=== PATIENT | female | born 1975 | race Caucasian/White ===

== ENCOUNTER 2018-07-10 18:06 | Observation (INO) ==
--- NOTE | 2018-07-10 18:14 | Emergency Department Note ---
Disposition Clinical Impression: Deliberate self-cutting UTI (urinary tract infection) Qualifiers: Urinary tract infection type: acute cystitis Hematuria presence: without hematuria Qualified Code(s): N30.00 - Acute cystitis without hematuria Disposition: Still a Patient Condition: Good Instructions: Suicide Prevention for Adults (ED), Urinary Tract Infection in Women (ED) Reasons to Return/Additional Instructions: Please take your medication as prescribed. If he feel the need to hurt yourself please call 911 and come to the emergency department. You have a urinary tract infection please be sure to take your antibiotics do not stop taking them even if he feel better. Please be sure to drink plenty of clear fluids. 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 Please be sure to take your medications as prescribed. You tested positive for several different drugs. Please stop using drugs. Drugs are bad for you. Drugs could possibly kill you. If you insist on using drugs please use them around someone else that is not using and that is responsible enough that can administer Narcan and call 911. Please keep your sutures clean and dry. Clean them daily with warm soapy water. And then recover with antibiotic ointment and a loose dressing. Please do not soak your hands. You are sutures will fall out by themself. Please do not attempt to remove them. If you notice any signs that your sutures site is turning red, or has a discharge, or foul odor or any other signs or symptoms are concerning to you please return to the emergency department immediately. You can use [id number] Tylenol or Motrin at the dose prescribed on the bottle to help with pain relief. Prescriptions: Cephalexin [Keflex] 500 mg PO BID 7 Days capsule predniSONE [PredniSONE] 20 mg PO DAILY #20 tablet Referrals: NONE,PCP [Primary Care Provider] - Forms: ED Satisfaction Letter Time of Disposition: 22:39 General Adult HPI - General Stated complaint: 1a eval Time Seen by Provider: 07/10/18 18:09 Source: EMS Mode of arrival: ambulatory Limitations: no limitations Nursing Notes Reviewed: Yes Vital Signs Reviewed: Yes - History of Present Illness HPI Narrative: Female patient presenting to [facility] room complaining of attempting to harm herself. She got into a fight with her boyfriend because she wanted to go back to [place] to get treatment for her Hallie's. She believes she is in an Hallie's crisis. She states that she needs a dose of steroids. After being his argument she picked up a knife and cut her left wrist twice. She does have a history of this. She states last time she cut herself was when she was 13. She currently is not endorsing suicidal ideation or homicidal ideation. She does report that with her crisis she does not want to eat and she has some abdominal pain she denies any abdominal pain at this time. We will give dose of prednisone while here and get a basic lab workup. She is agreeable for a Ia evaluation. The laceration on her arm will also have to be sutured. She states that her last tetanus shot was approximately 3 years ago. - Related Data Previous Rx's Medication Instructions Recorded Cephalexin [Keflex] 500 mg PO BID 7 Days capsule 07/10/18 NALOXONE 4 MG Nasal [place] [Narcan] 4 mg NS AD #2 sprays 07/10/18 predniSONE [PredniSONE] 20 mg PO DAILY #20 tablet 07/10/18 Allergies Allergy/AdvReac Type Severity Reaction Status Date / Time ciprofloxacin Allergy Rash Verified 07/10/18 18:49 All systems ED: reviewed and negative except as stated. Review of Systems: As Per HPI Constitutional: Denies: fever Cardiovascular: Denies: chest pain, syncope Respiratory: Denies: cough, dyspnea Gastrointestinal: Reports: abdominal pain (Occasional. Not at this time.). Denies: nausea, vomiting, diarrhea, hematemesis, melena, hematochezia Genitourinary: Denies: urgency, dysuria, frequency, hematuria Musculoskeletal: Denies: back pain Integumentary: Reports: other (Laceration and abrasion to left wrist. Self- induced.) Psychiatric: Reports: anxiety, other (She reports self-harm thoughts still. She states she does not want to kill herself but she does still want to harm herself.). Denies: homicidal thoughts, auditory hallucinations, visual hallucinations Past Medical History - Past Medical History Attestation: Yes The following information was validated with the patient. 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 Absent: scleral icterus - ENT ENT exam: normal exam, normal oropharynx, mucous membranes moist - Neck Neck exam: Present: normal inspection, full ROM, trachea midline - Chest Chest inspection: Present: normal inspection, symmetric chest wall rise - Respiratory Respiratory exam: Present: normal lung sounds bilaterally. Absent: respiratory distress, accessory muscle use - Cardiovascular Cardiovascular exam: Present: regular rate, normal rhythm, normal heart sounds - Abdominal Exam Abdominal exam: Present: soft, Non-Tender. Absent: tenderness, distention, guarding, rebound, rigidity, organomegaly - Extremities Exam Extremities exam: Present: full ROM. Absent: tenderness, pedal edema - Expanded Upper Extremity Exam Shoulder exam: Present: normal inspection, full ROM Arm exam: Present: normal inspection, full ROM Elbow exam: Present: normal inspection, full ROM Forearm/Wrist exam: Present: full ROM, abrasion (Approximately 3 cm to left wrist.), laceration (Approximately 1/2 cm to left wrist.). Absent: tenderness, swelling Hand exam: Present: normal inspection, full ROM. Absent: tenderness, swelling, abrasion - Expanded Lower Extremity Exam Hip/Pelvis exam: Present: normal inspection, full ROM Upper leg exam: Present: normal inspection, full ROM Knee exam: Present: normal inspection, full ROM Lower leg exam: Present: normal inspection, full ROM Ankle exam: Present: normal inspection, full ROM Foot/toe exam: Present: normal inspection, full ROM Neurovascular/Tendon exam: Absent: motor deficit, sensory deficit, tendon deficit - Neurological Exam Neurological exam: Present: alert, oriented X3 - Psychiatric Psychiatric exam: Present: normal affect, normal mood - Skin Skin exam: Present: warm, dry, normal color - Expanded Skin Exam 1 - Laceration 2 - Abrasion Course Course Narrative: [place] Ia workup on the patient we will provide her with prednisone while here. We also suture patient's left forearm. She is up-to-date on her tetanus we will not be providing this. Patient is agreeable with this plan. Vital Signs Temperature 98.0 F 07/10/18 18:14 Pulse Rate 89 07/10/18 18:14 Respiratory Rate 20 07/10/18 18:14 Blood Pressure 129/103 07/10/18 18:14 O2 Sat by Pulse Oximetry 100 07/10/18 18:14 Temperature 98.0 F 07/10/18 18:14 Pulse Rate 89 07/10/18 18:14 Respiratory Rate 20 07/10/18 18:14 Blood Pressure 129/103 07/10/18 18:14 O2 Sat by Pulse Oximetry 100 07/10/18 18:14 Oxygen Delivery Oxygen Delivery Room Air Procedures - Laceration Laceration 1 Site: upper extremity Side (If applicable): left Size (cm): 1.5 Description: linear Depth: simple, single layer Local Anesthetic: lidocaine 1%, with epi Amount of Anesthesia Used (mL): 2 Pre-repair: wound explored, irrigated extensively, deep structures intact Skin layer closed with: other (gut) Size: 6-0 Technique: simple, interrupted Medical Decision Making - Medical Records Medical records reviewed: Yes I reviewed the patient's medical records. - Lab Data Lab results reviewed: Yes I reviewed the patient's lab results. Result diagrams: 07/10/18 19:17 07/10/18 19:17 Lab Results 07/10/18 07/10/18 07/10/18 Range/Units 18:36 18:36 19:17 WBC 12.8 H (4.3-11.1) K/mcL RBC 4.79 (3.82-4.97) M/mcL Hgb 14.8 (11.5-15.4) g/dL Hct 46.0 H (35.3-44.9) % MCV 96.0 (83.0-100.0) fL MCH 30.9 (28.0-33.3) pg MCHC 32.2 (31.6-35.5) g/dL RDW 12.9 (11.5-14.5) % Plt Count 468 H (140-400) K/mcL MPV 9.8 (9.4-12.4) fL Immature Gran % 0.2 (0-4) % Seg Neutrophils % 56.6 % Lymphocytes % 35.4 % Monocytes % 6.9 % Eosinophils % 0.7 % Basophils % 0.2 % Neutrophils # 7.2 (1.6-8.9) K/mcL Lymphocytes # 4.5 (0.6-4.6) K/mcL Monocytes # 0.9 (0.0-1.3) K/mcL Eosinophils # 0.1 (0.0-0.6) K/mcL Basophils # 0.0 (0.0-0.2) K/mcL Sodium (136-145) mEq/L Potassium (3.5-5.1) mEq/L Chloride (98-107) mEq/L Carbon Dioxide (23-29) mEq/L BUN (6-20) mg/dL Creatinine (0.60-1.20) mg/dL Est GFR ( Amer) (> 60) Est GFR (Non-Af Amer) (> 60) BUN/Creatinine Ratio (6-26) Glucose (70-105) mg/dL Calculated Osmolality (280-300) Calcium (8.6-10.3) mg/dL Urine Color Dark Yellow (Yellow) Urine Clarity Cloudy A (Clear) Urine pH 5.5 (5.0-8.0) pH Units Ur Specific [place] > 1.030 H (1.010-1.025) Urine Protein Trace (Neg-Trace) mg/dL Urine Glucose (UA) Normal (Normal) mg/dL Urine Ketones Trace H (Negative) mg/dL Urine Blood Negative (Negative) Urine Nitrite Positive A (Negative) Urine Bilirubin Small H (Negative) Urine Urobilinogen Normal (Normal) mg/dL Ur Leukocyte Esterase Small H (Negative) Urine Microscopic RBC 5-15 H (0-3) per hpf Urine Microscopic WBC 30-50 H (0-3) per hpf Ur Squamous Epith Cells Many H (None-Few) per lpf Urine Bacteria Many H (None-Few) per hpf Hyaline Casts Few (None-Few) per lpf Salicylates (15.0-30.0) mg/dL Urine Opiates Screen Positive H (Yuexbl=137) ng/mL Acetaminophen (10-20) mcg/mL Ur Barbiturates Screen Negative (Efzizf=947) ng/mL Ur Phencyclidine Scrn Negative (Cutoff=25) ng/mL Ur Amphetamines Screen Positive H (Syndcm=5422) ng/mL U Benzodiazepines Scrn Positive H (Rkjpln=028) ng/mL Urine Cocaine Screen Positive H (Cutoff= 300) ng/mL U Marijuana (THC) Screen Positive H (Cutoff = 50) ng/mL Ur Drug Screen Interp See Below Ethyl Alcohol (Less than 10) mg/dL 07/10/18 Range/Units 19:17 WBC (4.3-11.1) K/mcL RBC (3.82-4.97) M/mcL Hgb (11.5-15.4) g/dL Hct (35.3-44.9) % MCV (83.0-100.0) fL MCH (28.0-33.3) pg MCHC (31.6-35.5) g/dL RDW (11.5-14.5) % Plt Count (140-400) K/mcL MPV (9.4-12.4) fL Immature Gran % (0-4) % Seg Neutrophils % % Lymphocytes % % Monocytes % % Eosinophils % % Basophils % % Neutrophils # (1.6-8.9) K/mcL Lymphocytes # (0.6-4.6) K/mcL Monocytes # (0.0-1.3) K/mcL Eosinophils # (0.0-0.6) K/mcL Basophils # (0.0-0.2) K/mcL Sodium 140 (136-145) mEq/L Potassium 3.7 (3.5-5.1) mEq/L Chloride 105 (98-107) mEq/L Carbon Dioxide 26 (23-29) mEq/L BUN 16 (6-20) mg/dL Creatinine 1.07 (0.60-1.20) mg/dL Est GFR ( Amer) > 60 (> 60) Est GFR (Non-Af Amer) 56 L (> 60) BUN/Creatinine Ratio 15 (6-26) Glucose 100 (70-105) mg/dL Calculated Osmolality 291 (280-300) Calcium 9.9 (8.6-10.3) mg/dL Urine Color (Yellow) Urine Clarity (Clear) Urine pH (5.0-8.0) pH Units Ur Specific [place] (1.010-1.025) Urine Protein (Neg-Trace) mg/dL Urine Glucose (UA) (Normal) mg/dL Urine Ketones (Negative) mg/dL Urine Blood (Negative) Urine Nitrite (Negative) Urine Bilirubin (Negative) Urine Urobilinogen (Normal) mg/dL Ur Leukocyte Esterase (Negative) Urine Microscopic RBC (0-3) per hpf Urine Microscopic WBC (0-3) per hpf Ur Squamous Epith Cells (None-Few) per lpf Urine Bacteria (None-Few) per hpf Hyaline Casts (None-Few) per lpf Salicylates < 2.5 L (15.0-30.0) mg/dL Urine Opiates Screen (Dtjzox=890) ng/mL Acetaminophen < 10 L (10-20) mcg/mL Ur Barbiturates Screen (Mypxcs=445) ng/mL Ur Phencyclidine Scrn (Cutoff=25) ng/mL Ur Amphetamines Screen (Lcipsi=8319) ng/mL U Benzodiazepines Scrn (Zyoivf=974) ng/mL Urine Cocaine Screen (Cutoff= 300) ng/mL U Marijuana (THC) Screen (Cutoff = 50) ng/mL Ur Drug Screen Interp Ethyl Alcohol < 10 (Less than 10) mg/dL
[2018-07-10] MEDS ORDERED: Lidocaine/EPI 1:100k 1% 30 ML VIAL INFILT ONE (18:32)
[2018-07-10] MEDS ORDERED: predniSONE 20 MG TABLET PO ONE (18:34)
[2018-07-10 18:45] LABS: Bilirubin,Urine Small (Negative); Blood,Urine Negative (Negative); Clarity,Urine Cloudy (Clear); Color,Urine Dark Yellow (Yellow); Glucose,Urine (UA) Normal (Normal); Ketones,Urine Trace mg/dL (Negative); Leukocyte Esterase,Urine Small (Negative); Nitrite,Urine Positive (Negative); PH,Urine 5.5 pH Units (5.0-8.0); Protein,Urine Trace mg/dL (Neg-Trace); Specific Gravity,Urine > 1.030 (1.010-1.025); Urobilinogen,Urine Normal (Normal)
[2018-07-10 18:46] LABS: Bacteria,Urine Many per hpf (None-Few); Hyaline Casts,Urine Few per lpf (None-Few); Squamous Epithelial Cell,Urine Many per lpf (None-Few); WBC,Urine 30-50 per hpf (0-3)
[2018-07-10 18:57] LABS: Amphetamine Screen,Urine Positive ng/mL (Cutoff=1000); Barbiturate Screen,Urine Negative ng/mL (Cutoff=200); Benzodiazepines Screen,Urine Positive ng/mL (Cutoff=200); Cannabinoid Screen,Urine Positive ng/mL (Cutoff = 50); Cocaine Screen,Urine Positive ng/mL (Cutoff= 300); Opiate Screen,Urine Positive ng/mL (Cutoff=300); Phencyclidine Screen,Urine Negative ng/mL (Cutoff=25)
[2018-07-10 19:39] LABS: Basophils % 0.2 %; Eosinophils # 0.1 K/mcL (0.0-0.6); Eosinophils % 0.7 %; Hemoglobin 14.8 g/dL (11.5-15.4); Immature Granulocytes % 0.2 % (0-4); Lymphocytes # 4.5 K/mcL (0.6-4.6); Lymphocytes % 35.4 %; Mean Corpuscular HGB Conc 32.2 g/dL (31.6-35.5); Mean Corpuscular Hemoglobin 30.9 pg (28.0-33.3); Mean Platelet Volume 9.8 fL (9.4-12.4); Monocytes # 0.9 K/mcL (0.0-1.3); Monocytes % 6.9 %; Neutrophils # 7.2 K/mcL (1.6-8.9); Platelet Count 468 K/mcL (140-400); Red Blood Count 4.79 M/mcL (3.82-4.97); Red Cell Distribution Width 12.9 % (11.5-14.5); Segmented Neutrophils % 56.6 %
[2018-07-10] MEDS ORDERED: CefTRIAXone 1,000 MG VIAL IM ONE (19:43)
[2018-07-10] MEDS ORDERED: Bacitracin OINT PKT TP ONE (19:49)
[2018-07-10 20:13] LABS: Acetaminophen < 10 mcg/mL (10-20); BUN/Creatinine Ratio 15 (6-26); Blood Urea Nitrogen 16 mg/dL (6-20); Calcium 9.9 mg/dL (8.6-10.3); Carbon Dioxide 26 mEq/L (23-29); Chloride 105 mEq/L (98-107); Ethanol < 10 mg/dL (Less than 10); Glucose 100 mg/dL (70-105); Osmolality,Calculated 291 (280-300); Potassium 3.7 mEq/L (3.5-5.1); Salicylate < 2.5 mg/dL (15.0-30.0); Sodium 140 mEq/L (136-145); eGFR For Non-African Americans 56 (> 60)
--- NOTE | 2018-07-10 20:38 | Emergency Department Note ---
Disposition Clinical Impression: Deliberate self-cutting Disposition: Still a Patient Referrals: NONE,PCP [Primary Care Provider] - General Adult HPI - General Chief complaint: ED Psychiatric Symptoms Stated complaint: 1a eval Time Seen by Provider: 07/10/18 18:09 Source: EMS Mode of arrival: ambulatory Limitations: no limitations - History of Present Illness Pain Scale: 0 - Related Data Allergies Allergy/AdvReac Type Severity Reaction Status Date / Time ciprofloxacin Allergy Rash Verified 07/10/18 18:49 Constitutional: Denies: fever Cardiovascular: Denies: chest pain, syncope Respiratory: Denies: cough, dyspnea Gastrointestinal: Reports: abdominal pain (Occasional. Not at this time.). Denies: nausea, vomiting, diarrhea, hematemesis, melena, hematochezia Genitourinary: Denies: urgency, dysuria, frequency, hematuria Musculoskeletal: Denies: back pain Integumentary: Reports: other (Laceration and abrasion to left wrist. Self- induced.) Psychiatric: Reports: anxiety, other (She reports self-harm thoughts still. She states she does not want to kill herself but she does still want to harm herself.). Denies: homicidal thoughts, auditory hallucinations, visual hallucinations Past Medical History - Past Medical History Medical history: Reports: other ([place]'s disease.) Psychiatric history: Reports: anxiety, depression - Social History Smoking Status: Current every day smoker Alcohol use: Reports: none Drug use: Reports: marijuana Physical Exam - General Limitations: no limitations General appearance: alert, in no apparent distress Course Vital Signs Temperature 98.0 F 07/10/18 18:14 Pulse Rate 89 07/10/18 18:14 Respiratory Rate 20 07/10/18 18:14 Blood Pressure 129/103 07/10/18 18:14 O2 Sat by Pulse Oximetry 100 07/10/18 18:14 Temperature 98.0 F 07/10/18 18:14 Pulse Rate 89 07/10/18 18:14 Respiratory Rate 20 07/10/18 18:14 Blood Pressure 129/103 07/10/18 18:14 O2 Sat by Pulse Oximetry 100 07/10/18 18:14 Oxygen Delivery Oxygen Delivery Room Air Medical Decision Making - Lab Data Result diagrams: 07/10/18 19:17 07/10/18 19:17 Lab Results 07/10/18 07/10/18 07/10/18 Range/Units 18:36 18:36 19:17 WBC 12.8 H (4.3-11.1) K/mcL RBC 4.79 (3.82-4.97) M/mcL Hgb 14.8 (11.5-15.4) g/dL Hct 46.0 H (35.3-44.9) % MCV 96.0 (83.0-100.0) fL MCH 30.9 (28.0-33.3) pg MCHC 32.2 (31.6-35.5) g/dL RDW 12.9 (11.5-14.5) % Plt Count 468 H (140-400) K/mcL MPV 9.8 (9.4-12.4) fL Immature Gran % 0.2 (0-4) % Seg Neutrophils % 56.6 % Lymphocytes % 35.4 % Monocytes % 6.9 % Eosinophils % 0.7 % Basophils % 0.2 % Neutrophils # 7.2 (1.6-8.9) K/mcL Lymphocytes # 4.5 (0.6-4.6) K/mcL Monocytes # 0.9 (0.0-1.3) K/mcL Eosinophils # 0.1 (0.0-0.6) K/mcL Basophils # 0.0 (0.0-0.2) K/mcL Sodium (136-145) mEq/L Potassium (3.5-5.1) mEq/L Chloride (98-107) mEq/L Carbon Dioxide (23-29) mEq/L BUN (6-20) mg/dL Creatinine (0.60-1.20) mg/dL Est GFR ( Amer) (> 60) Est GFR (Non-Af Amer) (> 60) BUN/Creatinine Ratio (6-26) Glucose (70-105) mg/dL Calculated Osmolality (280-300) Calcium (8.6-10.3) mg/dL Urine Color Dark Yellow (Yellow) Urine Clarity Cloudy A (Clear) Urine pH 5.5 (5.0-8.0) pH Units Ur Specific [place] > 1.030 H (1.010-1.025) Urine Protein Trace (Neg-Trace) mg/dL Urine Glucose (UA) Normal (Normal) mg/dL Urine Ketones Trace H (Negative) mg/dL Urine Blood Negative (Negative) Urine Nitrite Positive A (Negative) Urine Bilirubin Small H (Negative) Urine Urobilinogen Normal (Normal) mg/dL Ur Leukocyte Esterase Small H (Negative) Urine Microscopic RBC 5-15 H (0-3) per hpf Urine Microscopic WBC 30-50 H (0-3) per hpf Ur Squamous Epith Cells Many H (None-Few) per lpf Urine Bacteria Many H (None-Few) per hpf Hyaline Casts Few (None-Few) per lpf Salicylates (15.0-30.0) mg/dL Urine Opiates Screen Positive H (Yjimvq=218) ng/mL Acetaminophen (10-20) mcg/mL Ur Barbiturates Screen Negative (Nmnypr=951) ng/mL Ur Phencyclidine Scrn Negative (Cutoff=25) ng/mL Ur Amphetamines Screen Positive H (Pxtgvz=5919) ng/mL U Benzodiazepines Scrn Positive H (Zyuzzb=013) ng/mL Urine Cocaine Screen Positive H (Cutoff= 300) ng/mL U Marijuana (THC) Screen Positive H (Cutoff = 50) ng/mL Ur Drug Screen Interp See Below Ethyl Alcohol (Less than 10) mg/dL 07/10/18 Range/Units 19:17 WBC (4.3-11.1) K/mcL RBC (3.82-4.97) M/mcL Hgb (11.5-15.4) g/dL Hct (35.3-44.9) % MCV (83.0-100.0) fL MCH (28.0-33.3) pg MCHC (31.6-35.5) g/dL RDW (11.5-14.5) % Plt Count (140-400) K/mcL MPV (9.4-12.4) fL Immature Gran % (0-4) % Seg Neutrophils % % Lymphocytes % % Monocytes % % Eosinophils % % Basophils % % Neutrophils # (1.6-8.9) K/mcL Lymphocytes # (0.6-4.6) K/mcL Monocytes # (0.0-1.3) K/mcL Eosinophils # (0.0-0.6) K/mcL Basophils # (0.0-0.2) K/mcL Sodium 140 (136-145) mEq/L Potassium 3.7 (3.5-5.1) mEq/L Chloride 105 (98-107) mEq/L Carbon Dioxide 26 (23-29) mEq/L BUN 16 (6-20) mg/dL Creatinine 1.07 (0.60-1.20) mg/dL Est GFR ( Amer) > 60 (> 60) Est GFR (Non-Af Amer) 56 L (> 60) BUN/Creatinine Ratio 15 (6-26) Glucose 100 (70-105) mg/dL Calculated Osmolality 291 (280-300) Calcium 9.9 (8.6-10.3) mg/dL Urine Color (Yellow) Urine Clarity (Clear) Urine pH (5.0-8.0) pH Units Ur Specific [place] (1.010-1.025) Urine Protein (Neg-Trace) mg/dL Urine Glucose (UA) (Normal) mg/dL Urine Ketones (Negative) mg/dL Urine Blood (Negative) Urine Nitrite (Negative) Urine Bilirubin (Negative) Urine Urobilinogen (Normal) mg/dL Ur Leukocyte Esterase (Negative) Urine Microscopic RBC (0-3) per hpf Urine Microscopic WBC (0-3) per hpf Ur Squamous Epith Cells (None-Few) per lpf Urine Bacteria (None-Few) per hpf Hyaline Casts (None-Few) per lpf Salicylates < 2.5 L (15.0-30.0) mg/dL Urine Opiates Screen (Cccnkw=071) ng/mL Acetaminophen < 10 L (10-20) mcg/mL Ur Barbiturates Screen (Vjthes=241) ng/mL Ur Phencyclidine Scrn (Cutoff=25) ng/mL Ur Amphetamines Screen (Qpqtgi=8247) ng/mL U Benzodiazepines Scrn (Stjzvn=001) ng/mL Urine Cocaine Screen (Cutoff= 300) ng/mL U Marijuana (THC) Screen (Cutoff = 50) ng/mL Ur Drug Screen Interp Ethyl Alcohol < 10 (Less than 10) mg/dL Attestation Statement - Attestation Attestation: I examined this patient and my medical decision-making was reviewed with the Resident Physician. I agree with the documented findings, disposition and treatment plan as described except to the extent set forth below. 42 year old female presents to the ED with complaints of anxiety and depression and had an breakdown today and out of anger started cutting again, which wasnot in an attempt to kill herself but somethngshe has done in the past asan outlet. IT did require suture. She is now medicaly cleraed and we will consult 1A
[2018-07-10] MEDS ORDERED: *HR* LORazepam 1 MG TABLET PO PRN (23:32)
[2018-07-10] MEDS ORDERED: *HR* LORazepam 2 MG/ML VIAL IM PRN (23:32)
[2018-07-10] MEDS ORDERED: MOM Conc 10 ML UD.LIQ PO PRN (23:32)
[2018-07-10] MEDS ORDERED: hydrOXYzine pamoate 25 MG CAPSULE PO PRN (23:32)
[2018-07-10] MEDS ORDERED: traZODone 50 MG TABLET PO PRN (23:32)
[2018-07-10] MEDS ORDERED: Mag Hydrox/Al Hydrox/Simeth 30 ML UDC PO PRN (23:32)
[2018-07-10] MEDS ORDERED: Haloperidol Lactate 5 MG/ML VIAL IM PRN (23:32)
[2018-07-11] MEDS: Ibuprofen 400 MG TABLET PO PRN ×2 (00:43→15:51)
[2018-07-11] MEDS ORDERED: Nicotine 21 MG PATCH.TD24 TD SCH (09:00)
[2018-07-11 09:28] VITALS: BP 105/70
[2018-07-11] MEDS ORDERED: Furosemide 20 MG TABLET PO SCH (10:30)
[2018-07-11] MEDS ORDERED: cephALEXin 500 MG CAPSULE PO SCH (10:30)
[2018-07-11] MEDS ORDERED: predniSONE 20 MG TABLET PO SCH (10:30)
--- NOTE | 2018-07-11 10:56 | Discharge Summary ---
Date of Encounter: 07/11/18 Time of Encounter: 10:48 History of Present Illness Chief complaint: Suicidal ideation and polysubstance abuse Admitted From: Emergency Dept History of Present Illness: Ms. Brown is a 42 year old female admitted from the emergency department for suicidal ideation and attempt by cutting her wrists after an argument with her significant other. Patient is from [facility] and recently came to [place], she reports having relationship difficulties and she is going so divorce and was [place]. UDS was positive for multiple drugs including opiates and cocaine and amphetamine benzo and THC. Patient stated that she self medicates for [place] disease. She reports recently with loss and has not been able to see her doctor was [place]. For patient denies any psychiatric history she reports remote history of depression but no psychiatric treatment. Past Med Surg Social Fam HX - Past Medical History Medical history: other - Past Psychiatric History Psychiatric history: Reports: no psych history - Past Surgical History Surgical History: hysterectomy, other - Social History Smoking Status: Current every day smoker Smokeless Tobacco Status: No Alcohol use: none Drug use: cocaine, opiates, marijuana Medications - Discharge Medications Cephalexin [Keflex] 500 mg PO BID 7 Days capsule 07/10/18 [Rx] NALOXONE 4 MG Nasal [place] [Narcan] 4 mg NS AD #2 sprays 07/10/18 [Rx] predniSONE [PredniSONE] 20 mg PO DAILY #20 tablet 07/10/18 [Rx] Albuterol Sulfate [Ventolin Hfa] 2 puff IH Q4H PRN 07/11/18 [History] Fludrocortisone Acetate [Florinef] 0.1 mg PO DAILY 07/11/18 [History] Furosemide [Lasix] 20 mg PO DAILY 07/11/18 [History] Gabapentin [Neurontin] 600 mg PO TID 07/11/18 [History] Potassium Chloride [K-Tab ER] 10 meq PO DAILY 07/11/18 [History] Tamsulosin [Flomax] 0.4 mg PO DAILY 07/11/18 [History] Allergy/AdvReac Type Severity Reaction Status Date / Time ciprofloxacin Allergy Rash Verified 07/10/18 18:49 Review of Systems Psychiatric: Reports: depression, suicidal ideation, irritability Exam - HEENT Head exam IM: Present: atraumatic Eye exam IM: Present: EOMI, normal appearance, PERRL ENT exam IM: Present: normal exam - Neurological Neurological exam: Present: CN II-XII intact - Respiratory Respiratory exam IM: Present: CTAB - GI/Abdominal GI/Abdominal exam IM: Present: normal bowel sounds, soft. Absent: tenderness - Extremities Extremities exam IM: Present: full ROM - Skin Skin exam IM: Present: dry, warm - Additional Information Additional Information: Left wrist is bandaged due to self cutting and to cover sutures - Constitutional Vitals: Temp Pulse Resp BP Pulse Ox 98.3 F 72 16 105/70 100 07/11/18 09:00 07/11/18 09:00 07/11/18 09:00 07/11/18 09:00 07/10/18 18:14 General appearance: age & developmentally appropriate, well-groomed, well- nourished - Musculoskeletal Gait: normal Station: relaxed Strength & Tone: normal for patient - Psychiatric Patient Orientation: Yes Person, Yes Time, Yes Place Level of alertness: Alert Behavior: cooperative, nervous, anxious, dramatic Psychomotor activity: Increased Eye Contact: Maintains Eye Contact Mood Description: Euthymic/stable, Depressed Affect description: congruent with mood, full range, constricted, dysphoric, anxious Speech Volume: Normal Speech pattern: normal rate, normal rhythm, normal tone, fluent, spontaneous, excessive Language & Vocabulary: consistent with education Thought Process: Linear, Goal Oriented Thought Content: No Suicidal ideation, No Homicidal ideation, No Overt delusions Perceptual Disturbances: No Auditory hallucinations, No Visual hallucinations Attention Span Ability: Capable of Focused Attention Memory Description: Grossly Intact Patient Reliability: Reliable Historian Fund of knowledge: Yes abstraction ability, Yes average, Yes aware of current events Intelligence Estimate: Average Judgment: Limited Insight: Partial Results - Labs Labs: Laboratory Last Values WBC 12.8 K/mcL (4.3-11.1) H 07/10/18 19:17 RBC 4.79 M/mcL (3.82-4.97) 07/10/18 19:17 Hgb 14.8 g/dL (11.5-15.4) 07/10/18 19:17 Hct 46.0 % (35.3-44.9) H 07/10/18 19:17 MCV 96.0 fL (83.0-100.0) 07/10/18 19:17 MCH 30.9 pg (28.0-33.3) 07/10/18 19:17 MCHC 32.2 g/dL (31.6-35.5) 07/10/18 19:17 RDW 12.9 % (11.5-14.5) 07/10/18 19:17 Plt Count 468 K/mcL (140-400) H 07/10/18 19:17 MPV 9.8 fL (9.4-12.4) 07/10/18 19:17 Immature Gran % 0.2 % (0-4) 07/10/18 19:17 Seg Neutrophils % 56.6 % 07/10/18 19:17 Lymphocytes % 35.4 % 07/10/18 19:17 Monocytes % 6.9 % 07/10/18 19:17 Eosinophils % 0.7 % 07/10/18 19:17 Basophils % 0.2 % 07/10/18 19:17 Neutrophils # 7.2 K/mcL (1.6-8.9) 07/10/18 19:17 Lymphocytes # 4.5 K/mcL (0.6-4.6) 07/10/18 19:17 Monocytes # 0.9 K/mcL (0.0-1.3) 07/10/18 19:17 Eosinophils # 0.1 K/mcL (0.0-0.6) 07/10/18 19:17 Basophils # 0.0 K/mcL (0.0-0.2) 07/10/18 19:17 Sodium 140 mEq/L (136-145) 07/10/18 19:17 Potassium 3.7 mEq/L (3.5-5.1) 07/10/18 19:17 Chloride 105 mEq/L (98-107) 07/10/18 19:17 Carbon Dioxide 26 mEq/L (23-29) 07/10/18 19:17 BUN 16 mg/dL (6-20) 07/10/18 19:17 Creatinine 1.07 mg/dL (0.60-1.20) 07/10/18 19:17 Est GFR ( Amer) > 60 (> 60) 07/10/18 19:17 Est GFR (Non-Af Amer) 56 (> 60) L 07/10/18 19:17 BUN/Creatinine Ratio 15 (6-26) 07/10/18 19:17 Glucose 100 mg/dL (70-105) 07/10/18 19:17 Calculated Osmolality 291 (280-300) 07/10/18 19:17 Calcium 9.9 mg/dL (8.6-10.3) 07/10/18 19:17 Urine Color Dark Yellow (Yellow) 07/10/18 18:36 Urine Clarity Cloudy (Clear) A 07/10/18 18:36 Urine pH 5.5 pH Units (5.0-8.0) 07/10/18 18:36 Ur Specific [place] > 1.030 (1.010-1.025) H 07/10/18 18:36 Urine Protein Trace mg/dL (Neg-Trace) 07/10/18 18:36 Urine Glucose (UA) Normal mg/dL (Normal) 07/10/18 18:36 Urine Ketones Trace mg/dL (Negative) H 07/10/18 18:36 Urine Blood Negative (Negative) 07/10/18 18:36 Urine Nitrite Positive (Negative) A 07/10/18 18:36 Urine Bilirubin Small (Negative) H 07/10/18 18:36 Urine Urobilinogen Normal mg/dL (Normal) 07/10/18 18:36 Ur Leukocyte Esterase Small (Negative) H 07/10/18 18:36 Urine Microscopic RBC 5-15 per hpf (0-3) H 07/10/18 18:36 Urine Microscopic WBC 30-50 per hpf (0-3) H 07/10/18 18:36 Ur Squamous Epith Cells Many per lpf (None-Few) H 07/10/18 18:36 Urine Bacteria Many per hpf (None-Few) H 07/10/18 18:36 Hyaline Casts Few per lpf (None-Few) 07/10/18 18:36 Salicylates < 2.5 mg/dL (15.0-30.0) L 07/10/18 19:17 Urine Opiates Screen Positive ng/mL (Ugmovp=390) H 07/10/18 18:36 Acetaminophen < 10 mcg/mL (10-20) L 07/10/18 19:17 Ur Barbiturates Screen Negative ng/mL (Mdxkfu=607) 07/10/18 18:36 Ur Phencyclidine Scrn Negative ng/mL (Cutoff=25) 07/10/18 18:36 Ur Amphetamines Screen Positive ng/mL (Vxloya=7348) H 07/10/18 18:36 U Benzodiazepines Scrn Positive ng/mL (Luhcyy=159) H 07/10/18 18:36 Urine Cocaine Screen Positive ng/mL (Cutoff= 300) H 07/10/18 18:36 U Marijuana (THC) Screen Positive ng/mL (Cutoff = 50) H 07/10/18 18:36 Ur Drug Screen Interp See Below 07/10/18 18:36 Ethyl Alcohol < 10 mg/dL (Less than 10) 07/10/18 19:17 Diagnosis - Discharge Diagnosis (1) Adjustment disorder with depressed mood Status: Acute (2) Suicidal ideation Status: Acute (3) Polysubstance dependence including opioid type drug, episodic abuse Status: Acute Assessment and Plan - Patient/Caregiver Discharge Instructions Activity: resume usual activities as tolerated Diet: regular diet Additional Instructions: The 17/04 mental health crisis line for [place], [place] is [phone]. - Follow up Plan Follow up with: [facility], [employer] [facility] [Other] (To establish in care, you may walk-in Monday through Monday at 7:45am or 12:30pm. Please bring your insurance card with you. You will be seen by an media relations specialist, your case will be opened, and you will be given return appointments to see a counselor and psychiatrist both within 2-3 weeks.) Functional capacity at discharge: independent ambulation Overall status at discharge: Stable Disposition: Home, Self-Care Provider Date of admission: 07/10/18 23:22 Primary care physician: PCP NONE Discharging clinician: Marlon Lopez Hospital Course Hospital course: Ms. Brown is a 42 year old female admitted on observation for suicidal ideation and substance abuse. Patient also has been stressed out by relationship problem was her fiance and she is scheduled to have a court hearing for divorce and was [facility] and her daughter is coming from [place] to pick her up. Patient denies any recent mental health's treatment but she suffered from [place] disease and she has been noncompliant with treatment. Patient acknowledged her substance abuse issues and confirmed that she uses occasionally. Prior to discharge patient denied any suicidal ideation, she was medically stable and she is discharged in stable condition. - Time Spent with Patient Total time spent providing and/or coordinating discharge services: Greater than 30 minutes Procedures - Procedures Procedures: Medication Management, Crisis Stabilization, Supportive Therapy, Group Therapy, Psychoeducational Therapy Quality - Multiple Antipsychotics Patient discharged on 2 or more antipsychotic medications: No
[2018-07-11] MEDS: Gabapentin 300 MG CAPSULE PO SCH ×2 (11:26→15:26)
== END 2018-07-11 17:44 | disposition home or self-care (01) ==
LOC: 1ANU 18:06 → EMEROOARM 18:06 → 1ANU 23:56
PROVIDERS: ADMIT Psychiatry & Neurology Psychiatry; ATTEND Psychiatry & Neurology Psychiatry